=== PATIENT | male | born 1945 | race Caucasian/White ===

== ENCOUNTER 2023-07-23 15:17 | Observation (INO) | payer OTHER ==
[2023-07-23] MEDS ORDERED: IBUPROFEN 400 MG TABLET (FP) PO ONE (20:48)
[2023-07-23] MEDS ORDERED: ACETAMINOPHEN 325 MG TABLET (FP) PO ONE (20:48)
[2023-07-23 22:51] LABS: BASO % 0.6 % (0-2.0); EOS % 1.4 % (0-4.5); HEMATOCRIT 39.7 % (35.4-49); HEMOGLOBIN 13.4 GM/dL (11.7-16.9); LYMPH % 14.8 % (8-40); MCH 33.6 pg (25.7-33.7); MCHC 33.7 g/dl (32.0-35.9); MEAN CELL VOLUME 99.5 fl (80-96); MEAN PLT VOLUME 6.9 fl (7.5-11.1); MONO % 14.3 % (3.8-10.2); NEUT % 68.9 % (42.8-82.8); PLATELET COUNT 257 10^3/uL (134-434); RBC 3.99 M/mm3 (4.00-5.60); RDW 13.8 % (11.9-15.9); WHITE BLOOD COUNT 9.5 K/mm3 (4.0-10.0)
[2023-07-23 23:31] LABS: POTASSIUM 3.7 mmol/L (3.5-5.1)
[2023-07-23 23:35] LABS: ALBUMIN 3.4 g/dl (3.4-5.0); CALCIUM 8.7 mg/dL (8.5-10.1)
[2023-07-23 23:36] LABS: BLOOD UREA NITROGEN 9.9 mg/dL (7-18)
[2023-07-23 23:38] LABS: CREATININE 0.9 mg/dL (0.55-1.3)
[2023-07-23 23:40] LABS: BILIRUBIN,TOTAL 1.3 mg/dL (0.2-1); TOT PROT 7.3 g/dl (6.4-8.2)
[2023-07-24] MEDS ORDERED: morphine CARPU-JECT 4 MG/1 ML DISP.SYRIN IVPUSH ONE (01:46)
[2023-07-24] MEDS ORDERED: DOCUSATE SODIUM 100 MG CAPSULE (FP) PO PRN (03:15)
[2023-07-24] MEDS ORDERED: ACETAMINOPHEN 1000 MG/100 ML BAG IVPB PRN (03:22)
[2023-07-24] MEDS ORDERED: KETOROLAC TROMETHAMINE 15 MG/ML VIAL IVPUSH PRN (03:24)
[2023-07-24 07:28] LABS: POTASSIUM 4.1 mmol/L (3.5-5.1)
[2023-07-24 07:32] LABS: CALCIUM 8.7 mg/dL (8.5-10.1)
[2023-07-24 07:33] LABS: BLOOD UREA NITROGEN 9.6 mg/dL (7-18); MAGNESIUM 1.7 mg/dL (1.8-2.4)
[2023-07-24 07:36] LABS: CREATININE 0.7 mg/dL (0.55-1.3)
[2023-07-24] MEDS: LOSARTAN POTASSIUM 50 MG TABLET PO SCH (11:12)
[2023-07-24] MEDS ORDERED: MAGNESIUM OXIDE 400 MG TABLET (FP) PO ONE (14:04)
[2023-07-24 16:30] VITALS: BMI 20.5
[2023-07-25 08:47] LABS: BASO % 0.4 % (0-2.0); EOS % 2.5 % (0-4.5); HEMATOCRIT 40.3 % (35.4-49); HEMOGLOBIN 14.2 GM/dL (11.7-16.9); LYMPH % 18.7 % (8-40); MCH 35.1 pg (25.7-33.7); MCHC 35.1 g/dl (32.0-35.9); MEAN PLT VOLUME 7.9 fl (7.5-11.1); NEUT % 64.4 % (42.8-82.8); PLATELET COUNT 295 10^3/uL (134-434); RBC 4.03 M/mm3 (4.00-5.60); RDW 13.7 % (11.9-15.9); WHITE BLOOD COUNT 9.1 K/mm3 (4.0-10.0)
[2023-07-25] MEDS: LOSARTAN POTASSIUM 50 MG TABLET PO SCH (10:31)
[2023-07-25] MEDS ORDERED: ACETAMINOPHEN 325 MG TABLET (FP) PO PRN (11:11)
[2023-07-25 15:26] VITALS: BP 156/95; PULSE 93; RESP 18; TEMP 98.6
[2023-07-25 17:11] LABS: CALCIUM 8.9 mg/dL (8.5-10.1)
[2023-07-25 17:12] LABS: ALBUMIN 3.1 g/dl (3.4-5.0); BLOOD UREA NITROGEN 8.7 mg/dL (7-18)
[2023-07-25 17:15] LABS: CREATININE 0.7 mg/dL (0.55-1.3); PHOSPHOROUS 2.9 mg/dL (2.5-4.9)
[2023-07-25 17:17] LABS: BILIRUBIN,TOTAL 0.7 mg/dL (0.2-1); TOT PROT 6.9 g/dl (6.4-8.2)
== END 2023-07-25 17:54 | disposition home or self-care (01) ==
LOC: JER 15:17 → JERBED 07-24 01:49 → J4W 07-24 08:37
PROVIDERS: ADMIT Internal Medicine
PROC: 3E033NZ Introduction of Analgesics, Hypnotics, Sedatives into Peripheral Vein, Percutaneous Approach (ICD-10-PCS; principal; 2023-07-24)
PROC: 3E033NZ Introduction of Analgesics, Hypnotics, Sedatives into Peripheral Vein, Percutaneous Approach (ICD-10-PCS; 2023-07-24)
DX: S22.42XA Multiple fractures of ribs, left side, initial encounter for closed fracture (principal); M25.462 Effusion, left knee; J90 Pleural effusion, not elsewhere classified; R07.81 Pleurodynia; M25.552 Pain in left hip; M25.562 Pain in left knee; M79.605 Pain in left leg; W11.XXXA Fall on and from ladder, initial encounter; Y93.H2 Activity, gardening and landscaping; Y92.007 Garden or yard of unspecified non-institutional (private) residence as the place of occurrence of the external cause; I10 Essential (primary) hypertension; F10.99 Alcohol use, unspecified with unspecified alcohol-induced disorder
CPT/HCPCS: 36415; 70450-TC; 71101-TC-LT-FY; 71260-TC; 72125-TC; 73521-TC-FY; 73552-TC-LT-FY; 73562-TC-LT-FY; 74177-TC; 80048; 80053; 83735; 84100; 84484; 85025; 93005; 93010; 94010; 96374; 96375; 97116-GP; 97162-GP; 99285-25; G0378